=== PATIENT | female | born 1950 | race Caucasian/White ===

== ENCOUNTER → 2018-08-26 15:19 | Outpatient (CLI) | payer MEDICARE, OTHER, SELFPAY ==
--- NOTE | 2018-08-26 | DI.MG.S_ITS ---
BILATERAL DIGITAL SCREENING MAMMOGRAM 3D/2D WITH CAD: 08/26/2018 CLINICAL: Routine screening. Comparison is made to exams dated: 02/07/2017 mammogram, 01/21/2017 mammogram, 01/11/2016 mammogram, and 01/27/2015 mammogram - [facility]. The tissue of both breasts is heterogeneously dense. This may lower the sensitivity of mammography. Current study was also evaluated with a Computer Aided Detection (CAD) system. There is an asymmetry in the right breast posterior depth superior region seen on the mediolateral oblique view only. Finding is best noted on tomographic MLO slice 28. There is possible architectural distortion associated with the asymmetry. There also is an asymmetry in the right breast middle depth medial region seen on the craniocaudal view only. Finding is best noted on tomographic CC slice 31. Additionally, there is an asymmetry in the right breast posterior depth medial region seen on the craniocaudal view only. Finding is best noted on tomographic CC slice 35. Punctate bilateral breast calcifications appear grossly stable to prior exams after accounting for differences in imaging technique and patient positioning. No other significant masses, calcifications, or other findings are seen in either breast. IMPRESSION: INCOMPLETE: NEEDS ADDITIONAL IMAGING EVALUATION 1) The asymmetry with possible associated architectural distortion in the right breast posterior depth superior region seen on the mediolateral oblique view only is indeterminate. Additional views with possible ultrasound are recommended. 2) The asymmetry in the right breast middle depth medial region seen on the craniocaudal view only is indeterminate. Additional views with possible ultrasound are recommended. 3) The asymmetry in the right breast posterior depth medial region seen on the craniocaudal view only is indeterminate. Additional views with possible ultrasound are recommended. This exam was interpreted at Station ID: [id number]. NOTE: For mammograms, a report in lay terms will be sent to the patient. Approximately 15% of breast malignancies will not be visualized mammographically. In the management of a palpable breast mass, a negative mammogram must not discourage biopsy of a clinically suspicious lesion. Electronically Signed By: Hudson Costa M.D. ecl/:09/02/2018 11:45:46 letter sent: Additional Imaging Needed ACR BI-RADS Category 0: Incomplete [id number]
== END ==
PROVIDERS: PCP Family Medicine; Visit Provider Family Medicine
DX: Z12.31 Encounter for screening mammogram for malignant neoplasm of breast (principal)
CPT/HCPCS: 77063; 77067

== ENCOUNTER → 2018-09-18 13:49 | Outpatient (CLI) | payer MEDICARE, OTHER, SELFPAY ==
--- NOTE | 2018-09-18 13:53 | DI.US.S_ITS ---
LIMITED ULTRASOUND OF RIGHT BREAST: 09/18/2018 CLINICAL: Follow up abnormal mammogram. Comparison is made to exams dated: 09/18/2018 mammogram, 08/26/2018 mammogram, 02/07/2017 mammogram, 01/21/2017 mammogram, 01/11/2016 mammogram, and 01/27/2015 mammogram - [facility]. Color flow and real-time ultrasound of the right breast 10-2 o'clock region were performed. Whitley scale images of the real-time examination were reviewed. There is 0.5 cm x 0.3 cm x 0.5 cm wider than tall oval cyst with a eccentrically thickened wall in the right breast at 10 o'clock anterior depth. This oval cyst displays posterior acoustic enhancement. Color flow imaging demonstrates that there is no vascularity present. It is uncertain if a finding at this depth in the breast correlates with any of the mammographic asymmetries. No other findings in the superior right breast to correspond to mammographic findings seen at screening. IMPRESSION: PROBABLY BENIGN Resolution of screening mammography abnormality with additional mammographic views. There are no suspicious ultrasound findings in the regions of these screening asymmetries. The 0.5 cm x 0.3 cm x 0.5 cm wider than tall oval cyst in the right breast is possibly an incidental finding and is probably benign. A follow-up mammogram and an ultrasound in 6 months is recommended to demonstrate stability. Findings and recommendations were conveyed to the patient at time of exam. This exam was interpreted at Station ID: [id number]. Electronically Signed By: Michelle ta/:09/18/2018 17:26:08 letter sent: Followup Recommended Ultrasound BI-RADS: 3 Probably benign
--- NOTE | 2018-09-18 13:53 | DI.MG.S_ITS ---
UNILATERAL RIGHT DIGITAL DIAGNOSTIC MAMMOGRAM 3D/2D WITH ADDITIONAL VIEWS: 09/18/2018 CLINICAL: Additional evaluation requested from prior study. Comparison is made to exams dated: 08/26/2018 mammogram, 02/07/2017 mammogram, and 01/21/2017 mammogram - [facility]. The tissue of right breast is heterogeneously dense. This may lower the sensitivity of mammography. With focal spot compression, and additional views, the three right breast abnormalities seen on screening mammography resolve. No significant masses, calcifications, or other findings are seen in the breast. IMPRESSION: INCOMPLETE: NEEDS ADDITIONAL IMAGING EVALUATION Resolution of screening mammography abnormalities with additional views. Ultrasound evaluation to confirm resolution is recommended and was performed immediately following this exam. This exam was interpreted at Station ID: [id number]. NOTE: For mammograms, a report in lay terms will be sent to the patient. Approximately 15% of breast malignancies will not be visualized mammographically. In the management of a palpable breast mass, a negative mammogram must not discourage biopsy of a clinically suspicious lesion. Resolution of screening mammography abnormality with additional views. Ultrasound evaluation to confirm resolution is recommended and was performed immediately following this exam. Electronically Signed By: Michelle ta/:09/18/2018 16:04:28 ACR BI-RADS Category 0: Incomplete [id number]
== END ==
PROVIDERS: PCP Family Medicine; Visit Provider Family Medicine
DX: R92.8 Other abnormal and inconclusive findings on diagnostic imaging of breast (principal); N60.01 Solitary cyst of right breast
CPT/HCPCS: 76642; 77065; G0279

== ENCOUNTER → 2022-05-16 10:10 | Outpatient (CLI) | payer MEDICARE, OTHER, SELFPAY ==
--- NOTE | 2022-05-16 | DI.US.S_ITS ---
PROCEDURE: US EXTREMITY NONVASC LOWER RT INDICATIONS: SOFT TISSUE MASS RIGHT GLUTEUS TECHNIQUE: Real-time scanning was performed of the right gluteal region , with image documentation. COMPARISON: None. FINDINGS: Targeted ultrasound of the right gluteal region demonstrates a hypoechoic mass with internal calcifications and irregular margins within the subcutaneous tissues above the right gluteal musculature. This measures 3.5 x 2.1 x 2.9 cm. IMPRESSION: Complex, superficial mass with internal vascularity and irregular margins measuring 3.5 x 2.1 x 2.9 cm in the region of concern. Findings could be a sequela of subcutaneous injections, prior trauma or malignancy such as soft tissue sarcoma. Correlate clinically. If no history of injections or trauma, consider MRI with contrast for further characterization. Dictated by: Francisco Lazaro M.D. on 05/16/2022 at 14:12 Approved by: Francisco Lazaro M.D. on 05/16/2022 at 14:14
== END ==
PROVIDERS: PCP Family Medicine; Referring Provider Family Medicine; Visit Provider Family Medicine
DX: R22.2 Localized swelling, mass and lump, trunk (principal); M79.9 Soft tissue disorder, unspecified
CPT/HCPCS: 76882

== ENCOUNTER → 2022-05-19 10:52 | Outpatient (CLI) | payer MEDICARE, OTHER, SELFPAY ==
--- NOTE | 2022-05-19 10:55 | DI.MRI.S_ITS ---
PROCEDURE: MR PELIS WO/W CON INDICATIONS: Soft tissue disorder, unspecified TECHNIQUE: Coronal HASTE, sagittal T2 FSE, axial T1 FSE, axial and coronal nonbreath-hold T2 FSE. Axial dynamic VIBE during administration of contrast. Post-contrast axial and coronal VIBE/2-D FLASH with fat saturation from the iliac crests to the symphysis. Optional diffusion weighted imaging and ADC may be performed. COMPARISON: None. FINDINGS: Image quality: Excellent. Bowel and peritoneum: No pathologic free pelvic fluid. Inferior colon and small bowel loops are normal in caliber. Genitourinary system: Bladder wall is normal in thickness. Distal ureters are non distended. Nodes and vessels: No pathologic pelvic or inguinal adenopathy by size criteria. Iliac vessels are normal in caliber. Soft tissues: In the subcutaneous tissues overlying the right gluteal musculature, there is a heterogeneous, enhancing mass with central hypointense signal measuring 2.8 x 3.1 x 3.4 cm, previously measuring 2.9 x 3.5 x 2.1 cm. The mass is T2 isointense to muscle. Bones: Marrow is normal in overall signal. IMPRESSION: Heterogeneous, T2 isointense mass with associated heterogeneous enhancement measuring 2.8 x 3.1 x 3.4 cm, similar in size compared with recent ultrasound given differences in technique. The presence of enhancement is a slightly worsened future, indicating either inflammation or infection. Soft tissue mass such as sarcoma is also a consideration. Depending on the clinical scenario of how long this has been present, sonographic follow-up in 1 month can be considered, otherwise biopsy could be obtained. Dictated by: Francisco Lazaro M.D. on 05/21/2022 at 10:04 Approved by: Francisco Lazaro M.D. on 05/21/2022 at 10:08
== END ==
PROVIDERS: PCP Family Medicine; Referring Provider Family Medicine; Visit Provider Family Medicine
DX: M79.9 Soft tissue disorder, unspecified (principal)
CPT/HCPCS: 72197; A9579

== ENCOUNTER → 2022-10-15 12:40 | Outpatient (CLI) | payer MEDICARE, OTHER, SELFPAY ==
--- NOTE | 2022-10-14 13:00 | DI.DEXA.S_ITS ---
Bone Density Report Name: DEMI NAVA Age: 72 Sex: Female Ethnicity: White Date of : 1950 Indication: postmenopausal; screening for osteoporosis; Referring Provider: HOWARD VIDAL Study: Bone densitometry was performed. Exam Date: October 12, 2022 Accession number: [id number] Bone Density: Region BMD T-score Z-score Classification Total Forearm (Left) 0.497 -1.5 0.5 Osteopenia 1/3 Forearm (Left) 0.649 -0.7 1.3 Normal UD Forearm (Left) 0.364 -1.4 0.1 Osteopenia World Health Organization criteria for BMD impression classify patients as: Normal (T-score at or above -1.0), Osteopenia (T-score between -1.0 and -2.5), or Osteoporosis (T-score at or below -2.5). Impression: The patient has normal bone mass. Discussion: BONE DENSITY IS ABOVE THE MINIMUM DESIRABLE LEVEL AT ALL SKELETAL SITES TESTED. This patient?s bone mineral density is above the minimum desirable level (T-score -1.0 or better) at all sites measured. The patient should follow a healthful lifestyle (good nutrition with adequate calcium and vitamin D, and appropriate weight-bearing exercise). Follow-Up: Consider repeating this study in 5 years or sooner if there is some new clinical indication. Reported by: RENARD COOK M.D. on 10/12/2022 3:50:00 PM.
--- NOTE | 2022-10-15 | DI.RAD.S_ITS ---
PROCEDURE: XR DEXA AXIAL SKELETON INDICATIONS: Localized osteoporosis [[place]] COMPARISON: [facility], , DEXA AXIAL SKELETON, 12/05/2016, 14:07. [facility], CR, DEXA AXIAL SKELETON, 12/20/2014, 14:12. FINDINGS: This blank DEXA report has been sent in error by the PACS system. The correct and complete report will be forthcoming in 1-2 days. Thank you for your patience and understanding. Dictated by: Scott Campbell M.D. on 10/15/2022 at 13:37 Approved by: Scott Campbell M.D. on 10/15/2022 at 13:37
== END ==
PROVIDERS: PCP Family Medicine; Referring Provider Family Medicine; Visit Provider Family Medicine
DX: M81.6 Localized osteoporosis [Lequesne] (principal); Z13.820 Encounter for screening for osteoporosis; Z78.0 Asymptomatic menopausal state
CPT/HCPCS: 77080

== ENCOUNTER → 2024-10-07 14:38 | Outpatient (CLI) | payer MEDICARE, OTHER, SELFPAY ==
--- NOTE | 2024-10-07 14:41 | DI.RAD.S_ITS ---
PROCEDURE: XR ANKLE RT MIN 3V INDICATIONS: ACUTE RIGHT ANKLE PAIN TECHNIQUE: 3 views of the ankle were acquired. COMPARISON: None. FINDINGS: Bones: Mild diffuse osteoporosis noted. Mild deformity of the mediolateral malleolar tips may represent old unified fractures Tibiotalar and talocalcaneal joints: Normal in width and alignment without arthritic change. Soft tissues: No soft tissue swelling, calcification or mass. IMPRESSION: Possible old unified fractures of the lateral and medial malleoli tips. Dictated by: Michael Hooks M.D. on 10/08/2024 at 10:42 Approved by: Michael Hooks M.D. on 10/08/2024 at 10:43
== END ==
PROVIDERS: PCP Family Medicine; Referring Provider Family Medicine; Visit Provider Family Medicine
DX: M25.571 Pain in right ankle and joints of right foot (principal); M81.0 Age-related osteoporosis without current pathological fracture
CPT/HCPCS: 73610